=== PATIENT | male | born 1975 | race Caucasian/White ===

== ENCOUNTER 2018-10-11 14:45 | Emergency (ER) | payer OTHER ==
[~2018-10-11] VITALS: Ht 188 cm; Wt 113.6 kg
[~2018-10-11 14:45] MED LIST: CEPHALEXIN500 M1 PO; NO HOME MEDICATIONS; NORCO 325 MG-7.1 TAB PO; PHENERGAN 25 TA25 MG PO; PRINIVIL10 MG PO
[2018-10-11 14:49] VITALS: BP 139/89; TEMP 98.6
[2018-10-11] MEDS ORDERED: PREDNISONE10 MG PO (15:37)
[2018-10-11 16:32] VITALS: PULSE 68
== END 2018-10-11 16:29 | disposition home or self-care (01) ==
LOC: COL.ER 14:45
DX: T78.3XXA Angioneurotic edema, initial encounter (principal)
CPT/HCPCS: J7512